=== PATIENT | male | born 1950 | race Caucasian/White ===

== ENCOUNTER 2018-02-18 11:15 | Inpatient (IN) | payer MEDICAID ==
[~2018-02-18] VITALS: Ht 170.2 cm; Wt 86.2 kg
[~2018-02-18 11:15] MED LIST: AMLO5TAB88 MT; AMOX-424 PO; ASPI-518 PO; BENA40TA3 PO; INSU100C11 SQ; INSU100C6 SQ; INSULIN; PROT40 MT; SIMV20TA2 PO; SULF1TAB48 PO; TRAM50TA94 PO
[2018-02-18] MEDS ORDERED: PANTOPRAZOLE SODIUM 40 MG/VIAL IV STA (11:32)
[2018-02-18] MEDS ORDERED: MAGNESIUM/ALUMINUM HYDROXIDE/SIMETHICONE 30ML UDC PO STA (11:32)
[2018-02-18] MEDS ORDERED: SODIUM CHLORIDE 0.9% 1,000 ML IV ONE (11:32)
[2018-02-18] MEDS ORDERED: ONDANSETRON HCL 4MG/2ML VIAL IV STA ×2 (11:32→12:48)
[2018-02-18 12:15] LABS: BASOPHILS % 0.4 % (0.0-2.0); EOSINOPHILS % 0.4 % (0.0-5.0); HEMATOCRIT. 28.8 % (42.0-52.0); HEMOGLOBIN. 9.9 g/dL (14.0-18.0); LYMPHOCYTES % 16.5 % (20.0-50.0); MEAN CORPUSCULAR HEMOGLOBIN 30.7 pg (28.0-32.0); MEAN CORPUSCULAR VOLUME 89.3 fL (80.0-94.0); MEAN PLATELET VOLUME 9.5 fl (7.4-10.4); MONOCYTES % 8.4 % (2.0-8.0); NEUTROPHILS % 74.3 % (40.0-76.0); PLATELET 133 x1000/uL (130-400); RED BLOOD CELL COUNT 3.23 mill/uL (4.7-6.1); RED CELL DISTRIBUTION WIDTH 14.7 % (11.6-14.6)
[2018-02-18 12:17] LABS: CHLORIDE 108 mEq/L (98-107)
[2018-02-18] MEDS ORDERED: MORPHINE SULFATE 4 MG/ML CPJ (NOT FOR IM USE) IV STA (12:48)
[2018-02-18] MEDS ORDERED: ACETAMINOPHEN 650MG SUPP PR PRN (16:00)
[2018-02-18] MEDS ORDERED: HYDROCODONE/ACETAMINOPHEN 5/325MG TABLET PO PRN (16:00)
[2018-02-18] MEDS ORDERED: LORAZEPAM 2MG/ML CPJ IV PRN (16:00)
[2018-02-18] MEDS ORDERED: ACETAMINOPHEN 650MG/20.3ML UDC GT PRN (16:00)
[2018-02-18] MEDS ORDERED: GUAIFENESIN 200MG/10ML SUGAR FREE UDC PO PRN (16:00)
[2018-02-18] MEDS ORDERED: DOCUSATE SODIUM 100MG CAPSULE PO PRN (16:00)
[2018-02-18] MEDS ORDERED: CLONIDINE 0.1MG TABLET PO PRN (16:00)
[2018-02-18] MEDS ORDERED: MAGNESIUM/ALUMINUM HYDROXIDE/SIMETHICONE 30ML UDC PO PRN (16:00)
[2018-02-18] MEDS ORDERED: ACETAMINOPHEN 325MG TABLET PO PRN (16:00)
[2018-02-18 18:40] VITALS: BP 164/77
[2018-02-18] MEDS ORDERED: ONDANSETRON 4MG ODT PO PRN (18:45)
[2018-02-18 20:00] VITALS: BP 158/75
[2018-02-18] MEDS ORDERED: LOSARTAN POTASSIUM 25 MG TABLET PO SCH (20:00)
[2018-02-19] VITALS: BP 145/68
[2018-02-19 00:17] LABS: CREATINE KINASE 125 IU/L (39-308)
[2018-02-19 00:18] LABS: CREATINE KINASE MB FRACTION 1.4 ng/mL (0.5-3.6)
[2018-02-19 01:55] VITALS: BP 145/68
== END 2018-02-19 02:45 | disposition short-term general hospital (02) | DRG 251 ==
LOC: ER 11:15 → 6EST 15:09 → ENRESERV 16:37
PROVIDERS: ADMIT Internal Medicine; ATTEND Internal Medicine
DX: R10.9 Unspecified abdominal pain (principal); I10 Essential (primary) hypertension; E11.9 Type 2 diabetes mellitus without complications; Z87.11 Personal history of peptic ulcer disease; Z79.899 Other long term (current) drug therapy; Z79.4 Long term (current) use of insulin; Z79.82 Long term (current) use of aspirin; Z89.9 Acquired absence of limb, unspecified
CPT/HCPCS: 36415; 71045; 74176; 80053; 82550; 82553; 83690; 83880; 84484; 85025; 93005; 96361; 96374; 96375; 96376; 99285; C9113; J2270; J2405; J7030